=== PATIENT | male | born 1975 | race Caucasian/White ===

== ENCOUNTER 2021-07-22 19:01 | Emergency (ER) | payer BC ==
[~2021-07-22 19:01] MED LIST changes: -CYCLOBENZAPRINE5 MG PO; -NAPROSYN500 MG PO
[2021-07-22 20:23] LABS: HEMOGLOBIN 12.6 gm/dl (14.0-17.5); RED BLOOD COUNT 4.17 M/UL (4.20-5.50)
[2021-07-22 20:50] LABS: BUN/CREATININE RATIO 27 (0-10)
[2021-07-23] MEDS ORDERED: NAPROSYN500 MG PO (00:04)
[2021-07-23] MEDS ORDERED: CYCLOBENZAPRINE5 MG PO (00:05)
== END 2021-07-23 01:25 | disposition home or self-care (01) ==
LOC: ER1 19:01
PROVIDERS: Physician Assistant
DX: M25.512 Pain in left shoulder (principal); M54.50 Low back pain, unspecified; E11.65 Type 2 diabetes mellitus with hyperglycemia; E78.5 Hyperlipidemia, unspecified; I10 Essential (primary) hypertension; Z86.16 Personal history of COVID-19
CPT/HCPCS: 71045; 72132; 80053; 81001; 82550; 82553; 82962; 84484; 85025; 85379; 85652; 86140; 93005; 96372; 96374; 99284; J1885; J7030; Q9967

== ENCOUNTER → 2021-07-22 | Outpatient (CLI) | payer BC ==
[~2021-07-22] MED LIST: ANTIVERT 12.512.5 MG PO; CYCLOBENZAPRINE5 MG PO; DECADRON4 MG PO; GLUCOPHAGE500 MG PO; HYDROCHLOROTHIA25 MG PO; LEVAQUIN500 MG PO; LIPITOR20 MG PO; NAPROSYN500 MG PO; PAXIL20 MG PO; ZESTRIL/PRINIVI10 MG PO
== END ==
LOC: RAD 18:38
DX: M51.27 Other intervertebral disc displacement, lumbosacral region (principal); M48.061 Spinal stenosis, lumbar region without neurogenic claudication
CPT/HCPCS: 72100